=== PATIENT | female | born 1995 | race Caucasian/White ===

== ENCOUNTER 2019-09-01 18:45 | Emergency (ER) | payer SELFPAY ==
[2019-09-01 20:21] LABS: Absolute Lymphocytes (CBC) 2.5 K/uL (0.7-4.9); Basophils % 0.7 % (0-1.3); Hematocrit 39.7 % (36.0-45.0); Lymphocytes % 33.3 % (15.3-44.8); MPV 10.4 fL (7.6-11.3); RBC Red Blood Cell Count 4.26 M/uL (3.86-4.86)
[2019-09-01 20:37] LABS: Protime INR 1.04
[2019-09-01 20:49] LABS: Barbiturates NEGATIVE (NEGATIVE); Benzodiazepines NEGATIVE (NEGATIVE); Cocaine NEGATIVE (NEGATIVE); METHAMPHETAM NEGATIVE (NEGATIVE); Methadone NEGATIVE (NEGATIVE); Opiates NEGATIVE (NEGATIVE); Phencyclidine NEGATIVE (NEGATIVE); THC Cannibis NEGATIVE (NEGATIVE)
--- NOTE | 2019-09-01 20:53 | RAD REPORT ---
EXAM DESCRIPTION: CT - Head Brain Wo Cont - 09/01/2019 8:43 pm CLINICAL HISTORY: HEADACHE Headache, drowsiness COMPARISON: <Comparisons> TECHNIQUE: All CT scans are performed using dose optimization technique as appropriate and may inclu de automated exposure control or mA/KV adjustment according to patient size. FINDINGS: No intracranial hemorrhage, hydrocephalus or extra-axial fluid collection.No areas of brai n edema or evidence of midline shift. The paranasal sinuses and mastoids are clear. The calvarium is intact. IMPRESSION: No acute intracranial abnormality.
[2019-09-01 20:55] LABS: ALT/SGPT 23 U/L (12-78); AST/SGOT 32 U/L (15-37); Albumin 4.2 g/dL (3.4-5.0); Alkaline Phosphatase 53 U/L (45-117); BUN Blood Urea Nitrogen 8 mg/dL (7-18); Bicarbonate 26 mmol/L (21-32); Bilirubin Direct 0.1 mg/dL (0-0.2); Bilirubin Total 0.3 mg/dL (0.2-1.0); Glucose Level 86 mg/dL (74-106); Magnesium 2.1 mg/dL (1.8-2.4); Potassium 3.4 mmol/L (3.5-5.1); Protein, Total 7.5 g/dL (6.4-8.2); Sodium Level 142 mmol/L (136-145); Troponin (Emerg Dept Use Only) < 0.02 ng/mL (0.0-0.045)
--- NOTE | 2019-09-01 20:57 | RAD REPORT ---
EXAM DESCRIPTION: RAD - Chest Single View - 09/01/2019 8:51 pm CLINICAL HISTORY: CHEST PAIN Chest pain. COMPARISON: <Comparisons> FINDINGS: Portable technique limits examination quality. The lungs are grossly clear. The heart is normal in size. No displaced fractures. IMPRESSION: No acute intrathoracic process suspected.
[2019-09-01 21:00] LABS: Urine Blood 2+ (NEG); Urine Glucose NEGATIVE (NEG); Urine Protein NEGATIVE (NEG)
--- NOTE | 2019-09-01 21:26 | EDPHYS ---
Physician Documentation [facility] Name: London Valentin Age: 23 yrs Sex: Female : 1995 Arrival Date: 09/01/2019 Time: 18:47 Bed 13 Private MD: ED Physician Tray Graham HPI: 09/01 20:47 This 23 yrs old Female presents to ER via Ambulatory with complaints of Chest pm1 Pain, Headache. 20:47 The patient or guardian reports chest pain that is located primarily in the mid-sternal pm1 area. The pain does not radiate. Associated signs and symptoms: Pertinent positives: headache, Pertinent negatives: abdominal pain, dizziness, nausea, shortness of breath, vomiting. The chest pain is described as sharp. Duration: The patient or guardian reports a single episode. Modifying factors: The symptoms are alleviated by nothing. the symptoms are aggravated by palpation of area. The patient has not experienced similar symptoms in the past. The patient has been recently seen by a physician: Patient with complaints of AMS three days ago and was admitted to the hospital in [place] due to AMS and seizure two days ago. Patient with first seizure in the ER that was witnessed by [facility] ER staff. Patient presenting to the ER today with complaints of chest pain that started today in the morning. Patient with headache to the back of her head. When patient had a seizure she hit the back of her head. 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 - Social history:: Smoking status: Patient/guardian denies using tobacco. - Ebola Screening: : Patient negative for fever greater than or equal to 101.5 degrees Fahrenheit, and additional compatible Ebola Virus Disease symptoms. ROS: 20:47 Constitutional: Negative for fever, chills, and weight loss, Eyes: Negative for injury, pm1 pain, redness, and discharge, ENT: Negative for injury, pain, and discharge, Neck: Negative for injury, pain, and swelling, Respiratory: Negative for shortness of breath, cough, wheezing, and pleuritic chest pain, Abdomen/GI: Negative for abdominal pain, nausea, vomiting, diarrhea, and constipation, Back: Negative for injury and pain, MS/Extremity: Negative for injury and deformity, Skin: Negative for injury, rash, and discoloration. 20:47 Cardiovascular: Positive for chest pain, Negative for edema, orthopnea, palpitations. 20:47 Neuro: Positive for headache, Negative for dizziness, numbness, tingling, weakness. Exam: 20:47 Constitutional: This is a well developed, well nourished patient who is awake, alert, pm1 and in no acute distress. Head/Face: Normocephalic, atraumatic. Neck: Trachea midline, no thyromegaly or masses palpated, and no cervical lymphadenopathy. Supple, full range of motion without nuchal rigidity, or vertebral point tenderness. No Meningismus. Cardiovascular: Regular rate and rhythm with a normal S1 and S2. No gallops, murmurs, or rubs. Normal PMI, no JVD. No pulse deficits. Respiratory: Lungs have equal breath sounds bilaterally, clear to auscultation and percussion. No rales, rhonchi or wheezes noted. No increased work of breathing, no retractions or nasal flaring. Abdomen/GI: Soft, non-tender, with normal bowel sounds. No distension or tympany. No guarding or rebound. No evidence of tenderness throughout. Back: No spinal tenderness. No costovertebral tenderness. Full range of motion. 20:47 Skin: Warm, dry with normal turgor. Normal color with no rashes, no lesions, and no evidence of cellulitis. MS/ Extremity: Pulses equal, no cyanosis. Neurovascular intact. Full, normal range of motion. 20:47 Chest/axilla: Inspection: normal, Palpation: tenderness, of the mid-sternal area, that totally reproduces the patient's complaints. 20:47 Neuro: Orientation: is normal, Motor: is normal, moves all fours. Vital Signs: 19:11 BP 118 / 68; Pulse 61; Resp 18; Temp 99.7(TE); Pulse Ox 100% on R/A; Weight 90.72 kg; ph Height 5 ft. 8 in. (172.72 cm); Pain 6/10; 21:13 BP 110 / 67; Pulse 57; Resp 16 S; Pulse Ox 100% on R/A; Pain 0/10; jd3 19:11 Body Mass Index 30.41 (90.72 kg, 172.72 cm) ph MDM: 19:33 Patient medically screened. [facility] 20:56 Data reviewed: vital signs. Data interpreted: Pulse oximetry: on room air is 100 %. pm1 Interpretation: normal. 21:23 Physician consultation: Nathan Klein MD was called at 21:23, was contacted at 21:23, pm1 regarding consult, patient's condition, and will see patient in the office next week. Have patient, parents call office on Thursday to schedule appointment. 21:25 Counseling: I had a detailed discussion with the patient and/or guardian regarding: the pm1 historical points, exam findings, and any diagnostic results supporting the discharge/admit diagnosis, lab results, radiology results, the need for outpatient follow up, to return to the emergency department if symptoms worsen or persist or if there are any questions or concerns that arise at home. 09/01 19:52 Order name: Basic Metabolic Panel pm1 09/01 19:52 Order name: CBC with Diff; Complete Time: 20:46 pm1 09/01 19:52 Order name: LFT's; Complete Time: 20:56 pm1 09/01 19:52 Order name: Magnesium; Complete Time: 20:56 pm1 09/01 19:52 Order name: PT-INR; Complete Time: 20:46 pm1 09/01 19:52 Order name: Troponin (emerg Dept Use Only); Complete Time: 20:56 pm1 09/01 19:52 Order name: XRAY Chest (1 view); Complete Time: 21:26 pm1 09/01 19:52 Order name: EKG; Complete Time: 19:54 pm1 09/01 19:52 Order name: Cardiac monitoring; Complete Time: 19:55 pm1 09/01 19:52 Order name: CT Head Brain wo Cont; Complete Time: 20:56 pm1 09/01 19:53 Order name: Basic Metabolic Panel; Complete Time: 20:56 EDMS 09/01 19:53 Order name: UDS; Complete Time: 20:56 pm1 09/01 20:26 Order name: Urine --Ancillary (enter results); Complete Time: 21:26 ds4 09/01 20:26 Order name: Urine Dipstick--Ancillary (enter results); Complete Time: 21:26 ds4 09/01 19:52 Order name: EKG - Nurse/Tech; Complete Time: 19:55 pm1 09/01 19:52 Order name: IV Saline Lock; Complete Time: 19:55 pm1 09/01 19:52 Order name: Labs collected and sent; Complete Time: 20:14 pm1 09/01 19:52 Order name: O2 Per Protocol; Complete Time: 19:54 pm1 09/01 19:52 Order name: O2 Sat Monitoring; Complete Time: 19:54 pm1 09/01 19:53 Order name: Urine Test (obtain specimen); Complete Time: 20:14 pm1 09/01 19:53 Order name: Urine Dipstick-Ancillary (obtain specimen); Complete Time: 20:14 pm1 Administered Medications: No medications were administered Disposition: 09/02 07:34 Co-signature as Attending Physician, Tray Graham MD I agree with the assessment and kdr plan of care. Disposition: 09/01/19 21:25 Discharged to Home. Impression: Chest pain, unspecified, Headache. - Condition is Stable. - Discharge Instructions: Nonspecific Chest Pain, General Headache Without Cause. - Medication Reconciliation Form, Thank You Letter, Antibiotic Education, Prescription Opioid Use form. - Follow up: Emergency Department; When: As needed; Reason: Worsening of condition. Follow up: Nathan Klein MD; When: 2 - 3 days; Reason: Recheck today's complaints, Continuance of care, Re-evaluation by your physician. - Problem is new. - Symptoms have improved. Signatures: Dispatcher [employer] EDTray Rahman MD MD cha Rittger, Kevin, MD MD kdr Hall, Patricia, RN RN ph Checo Fitzgerald, INTERNET MARKETING DIRECTOR INTERNET MARKETING DIRECTOR pm1 Jake Singer RN RN jd3 Corrections: (The following items were deleted from the chart) 09/01 19:40 19:11 PSHx: None; ph jd3 21:45 21:25 09/01/2019 21:25 Discharged to Home. Impression: Chest pain, unspecified; jd3 Headache. Condition is Stable. Forms are Medication Reconciliation Form, Thank You Letter, Antibiotic Education, Prescription Opioid Use. Follow up: Emergency Department; When: As needed; Reason: Worsening of condition. Follow up: Nathan Klein; When: 2 - 3 days; Reason: Recheck today's complaints, Continuance of care, Re-evaluation by your physician. Problem is new. Symptoms have improved. pm1
--- NOTE | 2019-09-01 21:26 | ER ---
Nurse's Notes [facility] Name: London Valentin Age: 23 yrs Sex: Female : 1995 Arrival Date: 09/01/2019 Time: 18:47 Bed 13 Private MD: Diagnosis: Chest pain, unspecified;Headache Presentation: 09/01 19:08 Presenting complaint: Patient states: [facility], no hx of seizures, hospital did not have a neurologist in call and d/c pt, no seizure medications prescribed, instructed to follow up w/ neuro but cannot get an appointment until Oct, pt c/o headache and chest pain since , chest pain is reproducible. Transition of care: patient was not received from another setting of care. Onset of symptoms was September 01, 2019. Risk Assessment: Do you want to hurt yourself or someone else? Patient reports no desire to harm self or others. Initial Sepsis Screen: Does the patient meet any 2 criteria? No. Patient's initial sepsis screen is negative. Does the patient have a suspected source of infection? No. Patient's initial sepsis screen is negative. Care prior to arrival: None. 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 - Social history:: Smoking status: Patient/guardian denies using tobacco. - Ebola Screening: : Patient negative for fever greater than or equal to 101.5 degrees Fahrenheit, and additional compatible Ebola Virus Disease symptoms. Screenin:27 Abuse screen: Denies threats or abuse. Nutritional screening: No deficits noted. jd3 Tuberculosis screening: No symptoms or risk factors identified. Fall Risk Ambulatory Aid- None/Bed Rest/Nurse Assist (0 pts). Gait- Normal/Bed Rest/Wheelchair (0 pts) Mental Status- Oriented to own ability (0 pts). Total Marvin Fall Scale indicates No Risk (0-24 pts). Assessment: 19:23 General: Appears in no apparent distress. comfortable, Behavior is calm, cooperative, jd3 appropriate for age, anxious. Pain: Complains of pain in head and chest Pain does not radiate. Pain began gradually, Is continuous. Neuro: Level of Consciousness is awake, alert, obeys commands, Oriented to person, place, time, situation, Reports recent seizure . Denies weakness blurred vision numbness diplopia. Cardiovascular: Heart tones S1 S2 present Capillary refill < 3 seconds Patient's skin is warm and dry. Respiratory: Airway is patent Respiratory effort is even, unlabored, Respiratory pattern is regular, symmetrical, Breath sounds are clear bilaterally. Denies cough, shortness of breath. GI: No signs and/or symptoms were reported involving the gastrointestinal system. Patient currently denies diarrhea, nausea, vomiting. : No signs and/or symptoms were reported regarding the genitourinary system. EENT: No signs and/or symptoms were reported regarding the EENT system. Derm: Skin is intact, Skin is dry, Skin is normal, Skin temperature is warm. Musculoskeletal: Circulation, motion, and sensation intact. Range of motion: intact in all extremities. 19:39 Reassessment: provider at bedside. jd3 20:25 Reassessment: Patient appears in no apparent distress at this time. No changes from jd3 previously documented assessment. Patient and/or family updated on plan of care and expected duration. Pain level reassessed. Patient is alert, oriented x 3, equal unlabored respirations, skin warm/dry/pink. 20:25 Reassessment: Patient appears in no apparent distress at this time. Patient and/or jd3 family updated on plan of care and expected duration. Pain level reassessed. Patient is alert, oriented x 3, equal unlabored respirations, skin warm/dry/pink. provider at bedside discussing results and plan of care. 21:13 Reassessment: Patient appears in no apparent distress at this time. Patient and/or jd3 family updated on plan of care and expected duration. Pain level reassessed. Patient is alert, oriented x 3, equal unlabored respirations, skin warm/dry/pink. Patient denies pain at this time. Patient states feeling better. 21:44 Reassessment: Patient appears in no apparent distress at this time. Patient and/or jd3 family updated on plan of care and expected duration. Pain level reassessed. Patient is alert, oriented x 3, equal unlabored respirations, skin warm/dry/pink. reported understanding of discharge instructions, even and steady gait upon discharge. Patient denies pain at this time. Vital Signs: 19:11 BP 118 / 68; Pulse 61; Resp 18; Temp 99.7(TE); Pulse Ox 100% on R/A; Weight 90.72 kg; ph Height 5 ft. 8 in. (172.72 cm); Pain 6/10; 21:13 BP 110 / 67; Pulse 57; Resp 16 S; Pulse Ox 100% on R/A; Pain 0/10; jd3 19:11 Body Mass Index 30.41 (90.72 kg, 172.72 cm) ph ED Course: 18:47 Patient arrived in ED. mr 19:11 Triage completed. ph 19:12 Arm band placed on Patient placed in an exam room. ph 19:15 Jake Singer, RN is Primary Nurse. jd3 19:27 Patient has correct armband on for positive identification. Placed in gown. Bed in low jd3 position. Call light in reach. Side rails up X 1. Adult w/ patient. napper tender on. Pulse ox on. NIBP on. 19:28 Patient maintains SpO2 saturation greater than 95% on room air. jd3 19:31 Checo Fitzgerald NP is PHCP. pm1 19:31 Osmnai Cooper MD is Attending Physician. pm1 19:33 Attending Physician role handed off by Osmani Cooper MD [facility] 19:33 Tray Graham MD is Attending Physician. [facility] 19:53 EKG done, by ED staff, reviewed by Checo Fitzgerald NP. jd3 19:58 Missed attempt(s): 20 gauge in right antecubital area. Bleeding controlled, band aid ds4 applied, catheter tip intact. 20:00 Inserted saline lock: 20 gauge in right wrist, using aseptic technique. Blood collected.ds4 20:14 Basic Metabolic Panel Sent. ds4 20:14 Basic Metabolic Panel Sent. ds4 20:14 CBC with Diff Sent. ds4 20:14 LFT's Sent. ds4 20:14 Magnesium Sent. ds4 20:14 PT-INR Sent. ds4 20:14 Troponin (emerg Dept Use Only) Sent. ds4 20:26 UDS Sent. ds4 20:26 Basic Metabolic Panel Sent. ds4 20:26 CBC with Diff Sent. ds4 20:26 LFT's Sent. ds4 20:26 Magnesium Sent. ds4 20:26 PT-INR Sent. ds4 20:26 Troponin (emerg Dept Use Only) Sent. ds4 20:44 CT Head Brain wo Cont In Process Unspecified. EDMS 20:51 XRAY Chest (1 view) In Process Unspecified. EDMS 21:25 Nathan Klein MD is Referral Physician. pm1 21:43 No provider procedures requiring assistance completed. IV discontinued, intact, jd3 bleeding controlled, No redness/swelling at site. Pressure dressing applied. Administered Medications: No medications were administered Outcome: 21:25 Discharge ordered by MD. pm1 21:43 Discharged to home ambulatory, with family. jd3 21:43 Condition: stable 21:43 Discharge instructions given to patient, family, Instructed on discharge instructions, follow up and referral plans. Demonstrated understanding of instructions, follow-up care. 21:45 Patient left the ED. jd3 Signatures: Dispatcher [employer] EDSC Tray Graham MD MD cha Rivera, Mary mr Ramirez Yon ds4 Ana M Wade, RN RN ph Checo Fitzgerald, BROWN STOCK WASHER BROWN STOCK WASHER pm1 Jake Singer RN RN jd3 Corrections: (The following items were deleted from the chart) 19:40 19:11 PSHx: None; ph jd3 21:14 20:25 Reassessment: Patient appears in no apparent distress at this time. Patient jd3 and/or family updated on plan of care and expected duration. Pain level reassessed. Patient is alert, oriented x 3, equal unlabored respirations, skin warm/dry/pink. provider at bedside discussing results and plan of care. jd3
[2019-09-01 21:52] VITALS: TEMP 99.7; O2SAT 100
[2019-09-01 21:53] VITALS: BP 110/67
--- NOTE | 2019-09-02 07:55 | EKG ---
Test Date: 2019-09-01 Test Time: 19:49:14 Power Mule Operator: LJ MEASUREMENT RESULTS: Intervals: Rate: 57 TX: 134 QRSD: 98 QT: 438 QTc: 426 [place]: P: 28 TX: 134 QRS: 48 T: 41 INTERPRETIVE STATEMENTS: Sinus bradycardia Otherwise normal ECG No previous ECG available for comparison Electronically Signed On 09-02-19 07:54:14 WIRE STITCHER OPERATOR by Ciaran Busch
== END 2019-09-01 21:45 | disposition home or self-care (01) ==
LOC: ER 18:45
DX: R51 Headache (principal)
CPT/HCPCS: 36415; 70450; 71045; 80048; 80076; 80307; 81003; 81025; 83735; 84484; 85025; 85610; 93005; 99285